=== PATIENT | male | born 1965 | race Two or more races ===

== ENCOUNTER 2024-07-20 15:58 | Inpatient (IN) | payer MEDICAID, SELFPAY ==
[2024-07-20 16:00] VITALS: BP 150/80; PULSE 81; RESP 29; TEMP 36.7
[2024-07-20 16:17] VITALS: PULSE 81; RESP 29; O2SAT 98
--- NOTE | 2024-07-20 16:54 | EKG_ITS ---
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
--- NOTE | 2024-07-20 17:17 | XR_ITS ---
Examination: AP chest single view Technique: AP portable semiupright chest single view Indications: New admission chest x-ray Findings: Normal heart size Atelectasis versus mild pneumonia left base Tracheostomy tube tip 6.6 cm above michelle Normal heart size Minor subsegmental atelectasis in the right midlung Impression: Atelectasis versus mild pneumonia left base, clinical correlation advised Tracheostomy tube tip 6.6 cm above michelle
[2024-07-20 17:36] LABS: Base Excess 4 (-3-3); HCO3 28 mEq/L (20-26); Inspired Oxygen, FIO2 30 %; O2 Saturation 97 % (91-98); PCO2 40 mmHg (32.0-48.0); PO2 79 mmHg (83-108); pH, Arterial 7.46 (7.35-7.45)
[2024-07-20 17:38] LABS: Allen Test Performed/OK; Puncture Site Left Radial
[2024-07-20 17:52] VITALS: BMI 24.8
[2024-07-20 19:08] LABS: Basophils # (Auto) 0.1 Thou/mm3 (0.0-0.2); Basophils % (Auto) 0 % (0-2.5); Eosinophils # (Auto) 0.3 Thou/mm3 (0.0-0.5); Eosinophils % (Auto) 2 % (0-10); Hematocrit 28.2 % (41.0-53.0); Immature Granulocytes % (Auto) 3 % (0-0); Immature Granulocytes Auto 0.44 Thou/mm3 (0.00-0.00); Lymphocytes # (Auto) 2.6 Thou/mm3 (1.0-4.8); Lymphocytes % (Auto) 21 % (10-50); Mean Corpuscular HGB Conc 31.9 g/dl (31.0-37.0); Mean Corpuscular Hemoglobin 28.3 pg (25.0-35.0); Mean Corpuscular Volume 89 fL (80-100); Monocytes # (Auto) 0.9 Thou/mm3 (0.0-0.8); Monocytes % (Auto) 7 % (0-12); Neutrophils # (Auto) 8.5 Thou/mm3 (1.8-7.7); Neutrophils % (Auto) 66 % (37-80); Nucleated Red Blood Cell # 0.02 Thou/mm3 (0.00-0.00); Nucleated Red Blood Cell % 0 /100 WBC (0); Platelet Count 509 Thou/mm3 (140-440); RDW Standard Deviation 59.4 fL (35.1-43.9); Red Blood Count 3.18 Miln/mm3 (4.50-5.90); White Blood Count 12.9 Thou/mm3 (3.8-10.6)
--- NOTE | 2024-07-20 19:21 | PC.NURSE ---
Patient admitted to [facility] at 1600. arrived via ambulance entered facility by jasmine. Pt mechanically ventilated accompanied by ambulance crew and RT. Assisted pt to bed. Complete assessment done. pt alert and able to follow simple commands. Unable to make needs known. slight increased RR to 32,VS WNL. Please refer to VS flow sheet. lungs clear with auscultation, Active bowel sounds noted. Slightly Redness and drainage to GT site noted.NO open wounds noted. Scar tissue noted to Lt Ischium covered by Allevyn dressing, Blancheable area noted to sacrum area covered with dressing. Alegre catheter with yellow clear urine. Billiary drain in place to RT upper quadrant. Notified of pt arrival. Carried out all new orders. Unable to faxed them over to [facility] due to connection issues. hand of given to mixer driver at around 1730. Called pharmacy to communicate of new admission. Hand off report given to Martha JOSE night nurse. Resident is resting quietly in bed family at bedside.
[2024-07-20 19:29] LABS: Alanine Aminotransferase 26 U/L (10-49); Albumin, Serum 3.8 gm/dL (3.5-5.0); Alkaline Phosphatase 480 U/L (46-116); Anion Gap 8 (7-16); Aspartate Amino Transferase 20 U/L (0-34); BUN/Creatinine Ratio 31 Ratio (12-20); Bilirubin,Total 0.3 mg/dL (0.3-1.2); Blood Urea Nitrogen 25 mg/dL (9-23); Calcium 9.3 mg/dL (8.3-10.6); Calcium (Corrected) 9.5 mg/dL (8.5-10.1); Carbon Dioxide 28.1 mMol/L (20.0-31.0); Chloride 104 mMol/L (98-107); Creatinine (Component) 0.8 mg/dL (0.6-1.3); Estimated Creatinine Clearance 87.6 mL/min (>60); Glucose 181 mg/dL (74-106); Osmolality,Calculated 288 (275-295); Potassium 4.7 mMol/L (3.4-5.1); Sodium 140 mMol/L (136-145); Total Protein 7.8 gm/dL (5.7-8.2); eGFR > 60 See Note
--- NOTE | 2024-07-20 20:05 | PD.SAHP ---
Physical exam Physical Exam Vital signs: Temp Pulse Resp BP Pulse Ox FiO2 98.7 F 98 35 H 120/68 99 30 07/21/24 17:00 07/21/24 20:34 07/21/24 20:34 07/21/24 17:00 07/21/24 20:34 07/21/24 20:34 Constitutional Comments: pt not responsive to any commands or painful stimuli and does not spontaneously move any extremities. HEENT Exam Comments: NAD Neck Exam Comments: no lymph adenopathy, thyromegaly or JVD Chest/Breast/Axilla Exam Comments: NAD Respiratory Exam Respiratory: Present normal breath sounds, no resp distress and patient mechanically ventilated Comments: Ventilator dependent Cardiovascular Exam Cardiovascular: Present RRR, S1 and S2 Abdominal Exam Abdominal: Present soft and normoactive bowel sounds Comments: Biliary drain in place Rectal Exam Comments: deferred Exam Comments: NAD Extremities Exam Comments: Quadriparesis with increased spasticity Back/Spine/Pelvis Exam Comments: cannot be examined in detail but overtly no evident deformity Skin Exam Comments: NAD Neurological Exam Comments: 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 No response to verbal commands or painful stimuli. No spontanous eye opening. Small b/l symmetrical pupil with sluggish response to light. Increased muscle tone/spastic. Incontinent of B & B. Ventilator dependent initiating some breaths above the set rate. Rehabilitation potential Diagnosis (1) Pontine hemorrhage: Status: Chronic (2) Acute ischemic stroke: Status: Chronic (3) Respiratory failure: Status: Chronic (4) Ventilator dependent: Status: Chronic (5) Tracheostomy in place: Status: Chronic (6) PEG (percutaneous endoscopic gastrostomy) status: Status: Acute (7) Cholecystitis: Status: Acute (8) Essential hypertension: Status: Chronic (9) Altered glucose metabolism due to diabetes: Status: Chronic (10) Comatose: Status: Chronic Assessment & Plan Assessment: Pt in a Comatosed state secondary to CVA x 2 and recently treated for sepsis due to Ac Cholecystitis, now with Biliary drain in place with Ventilator dependent resp. failure and Co-morbidities as above Plan: Full support and ongoing treatment/ Nutrition for current medications reviewed and continued. Prognosis Prognosis: Very guarded If patient not informed of condion, describe why: Comatosed state HPI History of Present Illness HPI: Pt is a 58 yrs of age male who was transferred to [facility] for bed bug exterminator care on 07-20-24 with : Comatosed state s/p multiple CVA including Pontine hemorrhage about two months ago and treated for sepsis secondary to Acute cholecystitis with a biliary drain in place as well as comorbidities of HTN; DM-II; Chronic respiratory failure on Ventilator with Tracheostomy and a feeding G- tube in place; GERD; Constipation. Pt was transferred here closer to home for easier visits by family who understand the poor prognostic outlook.
--- NOTE | 2024-07-20 20:05 | PC.NURSE ---
REVIEWED CBC, CHEM PANEL, ABG, XRAY RESULTS WITH DR. LAL. INFORMED MD WITH RR @ 30. SPOKE WITH RT OBDULIO TO CHANGE PEEP OF 5 TO 8. NO OTHER NEW ORDERS RECEIVED. NARENDRA BENNETT AT BEDSIDE, OBDULIO MCCLOUD INFORMED HER OF CHANGES.
[2024-07-20 20:20] VITALS: PULSE 87; RESP 30; O2SAT 99
[2024-07-21] VITALS (10 sets, daily range): BP systolic 120–144; BP diastolic 67–75; PULSE 82–98; RESP 18–35; TEMP 36.6–37.1; O2SAT 97–99
[2024-07-21] MEDS: INSULIN REGULAR, HUMAN 100 UNIT/ML VIAL SC ×4 (00:16→17:47)
[2024-07-21] MEDS: AMLODIPINE 10 MG TABLET GT (09:47)
[2024-07-21] MEDS: SODIUM CHLORIDE TAB 1,000 MG TABLET.SOL 1000 MG GT (09:48)
[2024-07-21] MEDS: ASPIRIN 81 MG TAB.CHEW GT (09:48)
[2024-07-21] MEDS: ESOMEPRAZOLE 40 MG GT (09:50)
[2024-07-21] MEDS: LISINOPRIL 20 MG TABLET 40 MG GT (10:15)
--- NOTE | 2024-07-21 10:57 | PC.NURSE ---
Insuline gargline and Modafinil medicines not being delivered. Called [facility] and spoke with Sofía, insulin from E kit to be used as per [facility]. Modafinil needs form to sign by Dr Prerna MD not here today due to holiday. Requested for them to call Dr Graff.
[2024-07-21] MEDS: FERROUS SULFATE 220 MG/5 ML ELIXIR 300 MG GT ×2 (14:34→21:56)
[2024-07-21] MEDS: HEPARIN 5,000 UNIT/ML VIAL 5000 UNIT SC ×2 (14:35→21:25)
--- NOTE | 2024-07-21 18:14 | PC.NURSE ---
Resident's daughter Pilo and resident's expressed concern about the resident. As per family,they don't want resident to suffer more and wanting the trach/vent out . spoke to the daughter and via phone and made him aware . Resident to be seen by the neurologist and evaluate the resident for any potential recovery and what the neurologist will say, if there are any chance of recovery then it will be presented according to the family and have them decide.
[2024-07-21] MEDS: ACETAMINOPHEN 325 MG TABLET 650 MG GT (21:05)
[2024-07-21] MEDS: INSULN SC (21:47)
[2024-07-21] MEDS: INSULIN GLARGINE 100 UNIT/ML SC (21:47)
[2024-07-21] MEDS: modafiniL 100 MG TABLET GT (21:55)
[2024-07-21] MEDS: ATORVASTATIN 20 MG TABLET GT (21:55)
[2024-07-21] MEDS: SENNOSIDES 8.6 MG TABLET GT (21:55)
[2024-07-22] VITALS (9 sets, daily range): BP systolic 125–159; BP diastolic 66–79; PULSE 87–93; RESP 24–34; TEMP 36.2–36.9; O2SAT 98–100
[2024-07-22] MEDS: INSULIN REGULAR, HUMAN 100 UNIT/ML VIAL SC ×4 (00:28→17:33)
[2024-07-22] MEDS: HEPARIN 5,000 UNIT/ML VIAL 5000 UNIT SC ×3 (05:10→21:23)
[2024-07-22] MEDS: FERROUS SULFATE 220 MG/5 ML ELIXIR 300 MG GT ×3 (05:10→21:27)
[2024-07-22] MEDS: ACETAMINOPHEN 325 MG TABLET 650 MG GT ×3 (05:12→21:27)
[2024-07-22] MEDS: AMLODIPINE 10 MG TABLET GT (09:41)
[2024-07-22] MEDS: ESOMEPRAZOLE 40 MG GT (09:42)
[2024-07-22] MEDS: ASPIRIN 81 MG TAB.CHEW GT (09:42)
[2024-07-22] MEDS: LISINOPRIL 20 MG TABLET 40 MG GT (09:43)
[2024-07-22] MEDS: SODIUM CHLORIDE TAB 1,000 MG TABLET.SOL 1000 MG GT (09:44)
--- NOTE | 2024-07-22 11:48 | PC.NURSE ---
Late entry for 07/20/24; Admisssion note: At approximately 1650, began admission packet with and daughter and reviewed and completed POLST form. Reviewed items for admission checklist by Home Insurance Agent. Explanations included of Subacute level of care and MD availability, general nursing care, Physical Therapy evaluation and Restorative Nursing purpose, personal belongings and laundry services and reviewed Resident Rights and Bill of Rights given to daughterTrish. There were no personal items for inventory on 07/20/24. Family is aware to speak to staff for inventory of any personal items. Explained that patient/resident may be affected by transfer process; resident may need some time to recover. Also explained and encouraged family to rest and eat regularly to be healthy while visiting for long periods.
--- NOTE | 2024-07-22 12:15 | PC.IP ---
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 Initial PPD placed 07/20/24; no immunizations noted for this resident and has refused any immunizations in the past; will not receive Influenza or PNA vaccines as family will act according to resident's norms prior to his strokes.
--- NOTE | 2024-07-22 12:19 | PC.NURSE ---
At 1110 called Auxiliary Power Equipment Operator for family after meeting with Prerna KIMBROUGH. Jeremie Mejía arrived for family, they had left the unit. Jeremie will continue to check for bedside Auxiliary Power Equipment Operator visits. Resident is of the Hinduism [place].
--- NOTE | 2024-07-22 12:49 | PC.NURSE ---
Late entry for 09. Resident's family (, 2 daughter's and son) awaiting outside the room when continuity writer approached family they appeared to be upset. They voiced concerns about resident prognosis and POC. They stated they needed to see to voice their concerns. They stated their father did not look good, that something was wrong with him. Immediately VS were assessed. Assessed resident by continuity writer. He did not seem in any respiratory distress. He was a bit warm with increased temperature of 100.0 blankets were removed, Room seemed too hot. will continue to monitor temperature and all vital signs. also came at 0930. and met with this family answered all of his concerns. Family was reciprocal and understanding. Daughter Trish interpreting for resident's . They agreed with Doctor's recommendations to wait until Friday to get an evaluation from Dr. Lloyd (Neurologist) and then go from there. this was approximately 1:30 conversation with family.
--- NOTE | 2024-07-22 13:22 | PC.NURSE ---
Residen't family 2 daughters (Bree Chambers,Amanda () and Shinto. Approached newspaper writer at nurse station to informing charge nurse that family together decided that they wanted their patient to be removed mechanical ventilation as of tomorrow morning. Resident remains DNR with selective treatment. Resident's voiced her wishes to turn ventilator off and let her go comfortably. She stated is what the whole family wants. Notified Dr. Graff. he agreed and support family on their decision. Family would like to start the process tomorrow morning.
[2024-07-22] MEDS: ATORVASTATIN 20 MG TABLET GT (21:27)
[2024-07-22] MEDS: SENNOSIDES 8.6 MG TABLET GT (22:00)
[2024-07-22] MEDS: INSULIN GLARGINE 100 UNIT/ML SC (22:00)
[2024-07-22] MEDS: INSULN SC (22:00)
[2024-07-23] VITALS (9 sets, daily range): BP systolic 141–159; BP diastolic 72–78; PULSE 73–102; RESP 24–36; TEMP 36.4–37; O2SAT 98–99
[2024-07-23] MEDS: INSULIN REGULAR, HUMAN 100 UNIT/ML VIAL SC ×2 (00:29→05:45)
[2024-07-23] MEDS: FERROUS SULFATE 220 MG/5 ML ELIXIR 300 MG GT ×2 (05:45→13:40)
[2024-07-23] MEDS: HEPARIN 5,000 UNIT/ML VIAL 5000 UNIT SC ×2 (05:45→13:40)
--- NOTE | 2024-07-23 06:17 | PC.NURSE ---
No output noted from biliary drain during shift.
--- NOTE | 2024-07-23 09:32 | PC.NURSE ---
Family decided for resident to be removed from mechanical ventilator today and to stop the tube feeding. Dr Graff made aware . Order received from MD to stop the tube feeding and give morphine sulfate IV 1 mg every 4 hours PRN for respiratory distress.
[2024-07-23] MEDS: AMLODIPINE 10 MG TABLET GT (09:42)
[2024-07-23] MEDS: ESOMEPRAZOLE 40 MG GT (09:43)
[2024-07-23] MEDS: ASPIRIN 81 MG TAB.CHEW GT (09:43)
[2024-07-23] MEDS: SODIUM CHLORIDE TAB 1,000 MG TABLET.SOL 1000 MG GT (09:43)
[2024-07-23] MEDS: LISINOPRIL 20 MG TABLET 40 MG GT (09:43)
[2024-07-23] MEDS: ACETAMINOPHEN 325 MG TABLET 650 MG GT ×2 (09:44→17:43)
--- NOTE | 2024-07-23 10:00 | CHAP ---
Responded to request from sub-acute to be present with patient who was passing and with family. Home Service Advisor had come earlier in the morning to pray. The request was also for someone who was Japanese speaking. A Japanese speaking spiritual care volunteer was asked to be there, as well. Comfort and prayer was given.
--- NOTE | 2024-07-23 10:34 | PC.NURSE ---
At around 10:10 resident was removed from mechanical ventilator by RT with Dr Graff and family members at bedside.
[2024-07-23] MEDS: MORPHINE SULFATE 10 MG/ML VIAL IV ×3 (10:54→20:10)
--- NOTE | 2024-07-23 11:15 | PC.NURSE ---
Family at bedside after discontinued ventilator. Explained to daughterTrish that patient may continue to breathe spontaneously and she indicated understanding. Dr. Graff at bedside as per family requestChaplaincy was at bedside for visiting as needed by family's request. Noted SpO2 94-95%, 118/50 88. Reported to ALEXEY Barrera. Family is comfortable at bedside, resident is awake, eyes open.
--- NOTE | 2024-07-23 11:41 | PC.NURSE ---
At 1140 resident comfortable with SpO2 95% HR 93; family members remain at bedside.
--- NOTE | 2024-07-23 15:31 | PC.NURSE ---
At [address] Graff via telephone regarding some remaining questions by family and routine medication administration. Dr. Graff had explained that routine meds did not necessarily ensure resident comfort and dunn to comfort was antipyretics (Tylenol) and pain medication that is ordered IV (Morphine). Staff will monitor resident for any signs of discomfort and communicate to Dr. Graff as needed. Family has decided to keep resident in comfort measures only, as described by Dr. Graff.
--- NOTE | 2024-07-23 18:05 | ESPR_ITS ---
Progress Note - SubAcute DIAGNOSIS (1) Pontine hemorrhage: Status: Chronic (2) Acute ischemic stroke: Status: Chronic (3) Respiratory failure: Status: Chronic (4) Ventilator dependent: Status: Chronic (5) Tracheostomy in place: Status: Chronic (6) PEG (percutaneous endoscopic gastrostomy) status: Status: Acute (7) Cholecystitis: Status: Acute (8) Essential hypertension: Status: Chronic (9) Altered glucose metabolism due to diabetes: Status: Chronic (10) Comatose: Status: Chronic OBJECTIVE Most recent vital signs: Last Vital Signs Temp 98.0 F 07/24/24 18:00 Pulse 93 07/24/24 18:00 Resp 28 H 07/24/24 18:00 BP 140/79 H 07/24/24 18:00 Pulse Ox 95 07/24/24 18:00 O2 Del Method Venturi Mask 07/23/24 17:54 FiO2 30 07/23/24 06:22 ASSESSMENT & PLAN Assessment: Pt in a Comatosed state secondary to CVA x 2 and recently treated for sepsis due to Ac Cholecystitis, now with Biliary drain in place with Ventilator dependent resp. failure and Co-morbidities as above Detailed talks with the pt's / daughter and other family as well as staff in attendance including the nursing home assistant for [facility] on 07-22-23 and went over all details of pt care and prognostic outlook. Answered all questions and the plan to have Neurologist evaluate for any input regards treatment and prognostic outlook which they have already been aware of as beeing very guarded as regards meaningful recovery towards independant living. Later the same day the family decided in unison that the pt would not have wanted to be sustained on ventilator and to live in any significant dependant state and requested that the ventilator/feeding be discontinued and meds only for comfort if indicated. The same was scheduled for this am and complied with pt on Morphine 1mg prn q 4 hourly for noticeable discomfort/pain. An hour after i checked on the pt and he maintained stable vital signs with slight tachypnea transient and seemed to be comfortable. Plan: Full support and ongoing treatment/ Nutrition for current medications reviewed and continued.
--- NOTE | 2024-07-23 20:15 | PC.NURSE ---
At around 14:00, resident's family spoke with Dr Graff and decided to keep resident in comfort measures only.
[2024-07-24] MEDS: ACETAMINOPHEN 325 MG TABLET 650 MG GT ×4 (00:30→22:05)
[2024-07-24] MEDS: MORPHINE SULFATE 10 MG/ML VIAL IV ×5 (00:31→23:05)
[2024-07-24 05:46] VITALS: BP 133/69; PULSE 87; RESP 30; TEMP 36.8; O2SAT 95
[2024-07-24 12:00] VITALS: BP 140/74; PULSE 89; RESP 30; TEMP 36.8
[2024-07-24 18:00] VITALS: BP 140/79; PULSE 93; RESP 28; TEMP 36.7; O2SAT 95
--- NOTE | 2024-07-24 18:29 | PC.NURSE ---
350ml Drained from biliary drain on this day shift.
[2024-07-25] MEDS: MORPHINE SULFATE 10 MG/ML VIAL IV ×6 (03:26→22:28)
[2024-07-25 05:53] VITALS: BP 129/78; PULSE 101; RESP 24; TEMP 36.4; O2SAT 96
[2024-07-25] MEDS: ACETAMINOPHEN 325 MG TABLET 650 MG GT ×3 (06:40→18:22)
--- NOTE | 2024-07-25 06:41 | PC.NURSE ---
90ml drained from biliary drain for NOC shift.
[2024-07-25 11:55] VITALS: BP 106/55; PULSE 102; RESP 29; TEMP 36.7
[2024-07-25 17:04] VITALS: BP 111/63; PULSE 108; RESP 29; TEMP 36.5; O2SAT 93
--- NOTE | 2024-07-25 17:59 | PC.NURSE ---
150ml drained from drain bag
[2024-07-25 22:25] VITALS: PULSE 114; RESP 30; RESP 93
--- NOTE | 2024-07-25 22:40 | PC.NURSE ---
made aware of resident increased respiration during this shift, new order for Morphine sulfate 1mg [id number] PRN given for uncontrolled pain if previous morphine sulfate was ineffective, aware of current order for Morphine Q4 hours PRN, per add an additional order for every 2 hours PRN for uncontrolled pain, family in room, made aware.
[2024-07-26] VITALS: BP 122/65; PULSE 105; RESP 25; TEMP 38.6
[2024-07-26] MEDS: ACETAMINOPHEN 325 MG TABLET 650 MG GT ×2 (00:23→08:56)
[2024-07-26] MEDS: MORPHINE SULFATE 10 MG/ML VIAL IV ×7 (00:35→23:55)
[2024-07-26 06:00] VITALS: BP 121/66; PULSE 105; RESP 26; TEMP 36.8; O2SAT 96
--- NOTE | 2024-07-26 06:23 | PC.NURSE ---
175 ML drained from biliary drain, drainage has rust color for NOC shift.
[2024-07-26 06:25] VITALS: PULSE 105; RESP 30; O2SAT 94
[2024-07-26 11:35] VITALS: BP 134/75; PULSE 99; RESP 27; TEMP 36.9
[2024-07-26 17:16] VITALS: BP 135/70; PULSE 104; RESP 27; TEMP 37.1; O2SAT 96
--- NOTE | 2024-07-26 19:07 | PC.NURSE ---
Pt comfort care status, in stable condition family at bedside all day. Sats between 70-90's RR averaging 60-70 urine output low very dark mary in color. Pt required min suctioning family very concerned, do not want pt to have pain.Oral care provided mult times for large amounts of dry secreations in mouth and very dry lips. Pt medicated with morphine sulfate x4 with good results, 200 ml drained from drain tube. Pt comfortable at the end of the shift.
[2024-07-27] VITALS: BP 139/75; PULSE 105; RESP 28; TEMP 37.3
[2024-07-27] MEDS: ACETAMINOPHEN 325 MG TABLET 650 MG GT ×3 (00:15→14:30)
[2024-07-27] MEDS: MORPHINE SULFATE 10 MG/ML VIAL IV ×3 (03:55→12:55)
[2024-07-27 06:00] VITALS: BP 130/71; PULSE 101; RESP 28; TEMP 37.3; O2SAT 94
[2024-07-27 11:43] VITALS: BP 121/66; PULSE 98; RESP 36; TEMP 37
[2024-07-27 15:00] VITALS: O2SAT 94
--- NOTE | 2024-07-27 16:28 | PC.SS ---
IDT Meeting: Family in for meeting discussed concerns regarding care and medication, all concerns and questions addressed by medical research scientist and DON. Family is emotional and has been made aware of visiting hours, family is encouraged to call when not here. Family is at bedside daily. This SSD will make daily contact and will offer support.
[2024-07-27 17:47] VITALS: BP 129/66; PULSE 112; RESP 26; TEMP 37.2; O2SAT 70
--- NOTE | 2024-07-28 00:19 | PC.NURSE ---
Nurse was summoned to resident room at 1708- lungs and heart auscultated, no sign of life noted, family and next of kin in room, pronounced time of at 1925, [facility] called at 1950 and this nurse spoke to Murtaza, AIXA #[id number], postmortem care performed, rey cath removed, IV to right FA removed, trach was removed by RT, family requested [facility] for their services, made aware of resident passing, new order was obtained for remains to be release to [facility], next of kin signed release for remains, resident was picked up by [facility] at 2225, all belonging send to family.
--- NOTE | 2024-08-03 10:19 | DES_ITS ---
RE: SCOTT CALABRESE : 1965 DATE OF ADMISSION: 07/20/2024 DATE OF DISCHARGE/: 07/27/2024 ADMITTING DIAGNOSES: 1. Large pontine and thalamic stroke. 2. Chronic respiratory failure, ventilator dependent with a tracheostomy and a feeding G-tube. 3. Comatose state. 4. Status post acute cholecystitis with biliary drain in place. 5. Altered glucose metabolism state. DISCHARGE DIAGNOSES: 1. Large pontine and thalamic stroke. 2. Chronic respiratory failure, ventilator dependent with a tracheostomy and a feeding G-tube. 3. Comatose state. 4. Status post acute cholecystitis with biliary drain in place. 5. Altered glucose metabolism state. HOSPITAL COURSE AND RELEVANT DATA: The patient was admitted to the [facility] on 07/20/2024 with the above-stated diagnosis in a comatose state, status post large hemorrhagic pontine and thalamic stroke and patient being status post treatment for acute cholecystitis with a biliary drain in place with other comorbidities of essential hypertension and some altered glucose metabolism issues as well. The patient was ventilator dependent with a tracheostomy and a feeding G-tube. Detailed discussions with the family were kept updated. The family was very supportive and understanding of the very guarded/poor prognosis as outlined from previous admissions to the Acute Hospital and the patient's current status. The patient was given every support both nutritionally and medicinal. Family after detailed discussions and meetings with staff decided that from the patient's 's perspective and the patient's children's perspective that he would not have wanted to be in such a dependent state and to fulfill his wishes, they wanted no further heroics and to let nature take its course. They requested discontinuation of mechanical ventilation and to discontinue any G-tube feedings as well. Medications were to be considered only for comfort, for which he was on p.r.n. use of morphine as prescribed. The patient slowly over the next few days deteriorated in general status and on 07/27/2024 peacefully. The patient was, as per protocol, pronounced by the nursing title supervisor present/emergency room physician. DT: 13:32:31 TT: 17:12:00 Ref: [id number] - TID: [id number]
== END 2024-07-27 19:25 | disposition expired | DRG 44 ==
PROVIDERS: Admitting Provider Specialist; PCP Specialist; Visit Provider Specialist
DX: I61.3 Nontraumatic intracerebral hemorrhage in brain stem (principal); J96.10 Chronic respiratory failure, unspecified whether with hypoxia or hypercapnia; I10 Essential (primary) hypertension; E11.9 Type 2 diabetes mellitus without complications; R40.2A Nontraumatic coma due to underlying condition; K81.0 Acute cholecystitis; K21.9 Gastro-esophageal reflux disease without esophagitis; K59.00 Constipation, unspecified; Z86.73 Personal history of transient ischemic attack (TIA), and cerebral infarction without residual deficits; Z99.11 Dependence on respirator [ventilator] status; Z93.0 Tracheostomy status; Z93.1 Gastrostomy status; Z66 Do not resuscitate; Z97.8 Presence of other specified devices; Z51.5 Encounter for palliative care
CPT/HCPCS: 36415; 36600; 71045; 80053; 82803; 85025; 87205; 92523; 93005; 94002; 94004; 94762